=== PATIENT | male | born 1965 | race Caucasian/White ===

== ENCOUNTER 2021-10-23 16:58 | Emergency (ER) | payer MEDICAID, SELFPAY ==
[2021-10-23] VITALS (34 sets, daily range): BP systolic 130–178; BP diastolic 69–108; PULSE 76–94; RESP 12–24; TEMP 36.2–37.2; O2SAT 93–100
--- NOTE | 2021-10-23 17:26 | PC.NURSE ---
Patient reports drinking a 12 pack daily. Last intake was 1630 today.
--- NOTE | 2021-10-23 17:33 | ECG_ITS ---
Measurements Intervals [place] Rate: 94 P: 17 VA: 160 QRS: -25 QRSD: 102 T: 7 QT: 372 QTc: 466 Interpretive Statements SINUS RHYTHM SUPRAVENTRICULAR BIGEMINY DELAYED PRECORDIAL R/S TRANSITION BORDERLINE T WAVE ABNORMALITY- INFERIOR LEADS BASELINE ARTIFACT- I, II, III, AVR, AVL, AVF, V1-V6 ABNORMAL ECG Electronically Signed On 10-23-2021 20:01:51 TRIAGE LICENSED PRACTICAL NURSE by Jimmy Montez D.O.
--- NOTE | 2021-10-23 17:52 | ED.GENADULT ---
HPI - General Adult General Chief complaint: Unspecified <Aris Alfred APRN - Last Filed: 10/24/21 01:42> Stated complaint: shaky, cp <Aris Alfred APRN - Last Filed: 10/24/21 01:42> Time Seen by Provider: 10/23/21 17:36 <Aris Alfred APRN - Last Filed: 10/24/21 01:42> History of Present Illness HPI narrative: 56-year-old male presents to the emergency room with complaints of suicidal ideation. Patient states his suddenly last night and has been drinking more than usual. Patient states he did have a plan to use firearm, but was able to give the firearms to a family member prior to arrival in the emergency room. Patient admits to a long standing history of heavy alcohol use, the results and withdrawal immediately on cessation of alcohol use. Denies any admission to detox programs. No known psych issues. Positive family history for anxiety and depression. Reports no history of SI or HI. Patient states his last drink of alcohol was approximately 3 hours prior to arrival <Aris Alfred APRN - Last Filed: 10/24/21 01:42> Related Data Allergies/adverse reactions: Allergies Allergy/AdvReac Type Severity Reaction Status Date / Time diclofenac Allergy Unknown Verified 10/23/21 17:29 <Aris Alfred APRN - Last Filed: 10/24/21 01:42> Review of Systems Review of Systems: CONSTITUTIONAL: Denies fever, chills, or sweats. EYES: Denies visual changes, redness, or discharge. ENT: Denies rhinorrhea, congestion, sore throat, or otalgia. CARDIOVASCULAR: Denies chest pain, palpitations, or edema. RESPIRATORY: Denies cough or dyspnea. GASTROINTESTINAL: Reports generalized abdominal pain, nausea, and left CVA tenderness SKIN: Denies rash or itching. MUSCULOSKELETAL: Denies back pain, joint pain, or myalgia. NEUROLOGIC: Denies headache, numbness, dizziness, or weakness. PSYCHIATRIC: Denies anxiety or depression. <Aris Alfred APRN - Last Filed: 10/24/21 01:42> [facility] Social History Social History: Social History (Updated 10/23/21 @ 17:57 by Aris Alfred APRN) Alcohol intake: current Alcohol use details: 12+ drinks daily Substance use: current Substance use type: heroin, opiates and other Last use: 5 weeks ago <Aris Alfred APRN - Last Filed: 10/24/21 01:42> Course Course Emergency Course: Initial ethanol level was 110. Abnormal liver enzymes. Bag. Given 1 mg of Ativan. Patient appears calm. At 2200 repeat ethanol level was 30. Patient is not demonstrating any DTs or withdrawal symptoms at this time. patient has been medically cleared. At midnight crisis team at bedside to evaluate patient. <Aris Alfred APRN - Last Filed: 10/24/21 01:42> 10/24/21 0700 peritoneal myself at shift change seen evaluate myself agree with initial H&P patiently currently resting in bed he is requesting some Ativan at this time as he feels mildly agitated. Patient states he drinks approximately 8-10 beers a day Patient continued to wait for placement Covid swab for placement came back positive 1900 care will be turned over to Dr. Roper at shift change awaiting psychiatric placement <Neil Thomas DO - Last Filed: 10/24/21 18:52> DATE NIGHT CAREGIVER/PA Physician Supervision For this patient encounter, I reviewed the DATE NIGHT CAREGIVER or PA documentation, treatment plan, and medical decision making; and I had [id number] time with this patient. <Maverick Gilmore MD - Last Filed: 10/28/21 13:19> Reevaluation(s) Reevaluation #1: Patient is resting comfortably at this time. Crisis counselor evaluated the patient and patient will be admitted to inpatient psych under voluntary status. Crisis counselor was unable to obtain placement for the patient overnight. Crisis counselor will return on the morning to once again attempt seeking placement. <Maverick Gilmore MD - Last Filed: 10/28/21 13:19> Vital Signs Vital signs: Vital Signs Temperature 97.2 F L 0
[2021-10-23 18:06] LABS: Add Urine Microscopic? NO; Appearance Urine Clear (Clear); Basophils Absolute Auto 0.1 K/mm3 (0.0-0.1); Basophils Percent Auto 0.8 % (0.2-1.2); Bilirubin Urine Negative (Negative); Blood Urine Negative (Negative); Color Urine Straw (Yellow); Eosinophils Percent Auto 0.2 % (0-4.4); Glucose Urine UA Negative (Negative); Hematocrit 39.7 % (42.0-52.0); Hemoglobin 13.6 g/dL (14.0-18.0); Immature Granulocyte Absolute 0.03 K/mm3 (0.00-0.031); Immature Granulocyte Percent A 0.3 % (0-0.5); Immature Platelet Fraction Pct 19.7 % (0.9-11.2); Ketones Urine Negative (Negative); Leukocyte Esterase Ur Negative LEU/UL (Negative); Lymphocytes Absolute Auto 1.42 K/mm3 (0.9-3.2); Lymphocytes Percent Auto 13.2 % (18.3-44.2); Mean Corpuscular HGB Conc 34.3 g/dl (32-36); Mean Corpuscular Hemoglobin 32.1 pg (26-34); Mean Corpuscular Volume 93.6 fl (80-100); Mean Platelet Volume 12.1 fl (7.4-10.4); Monocytes Absolute Auto 1.2 K/mm3 (0.1-0.6); Monocytes Percent Auto 11.1 % (2.6-8.5); Neutrophils Percent Auto 74.4 % (45.5-73.1); Nitrate Urine Negative (Negative); Platelet Count Result 75 k/mm3 (150-375); Protein Urine Negative (Negative); Red Blood Count 4.24 M/mm3 (4.6-6.20); Red Cell Distribution Width 14.2 % (11.5-14.5); Urobilinogen Urine Negative mg/dL (<2.0); White Blood Count 10.7 K/mm3 (4.5-10.0)
[2021-10-23 18:10] LABS: Specific Grav Ur 1.001 (1.001-1.035)
[2021-10-23] MEDS: ONDANSETRON INJ 4 MG/2 ML VIAL IV PUSH (18:11)
[2021-10-23 18:16] LABS: INR 1.7; Prothrombin Time 19.2 Seconds (11.1-14.7)
[2021-10-23 18:18] LABS: Lipase 773 U/L (23-300)
[2021-10-23 18:20] LABS: Ethanol 102 mg/dL (<10)
[2021-10-23 18:22] LABS: Acetaminophen < 10 ug/mL (10-30); Salicylate < 1.0 mg/dL (2-20)
[2021-10-23 18:23] LABS: Alanine Aminotransferase 80 U/L (4-50); Albumin Level 4.5 g/dL (3.5-5.1); Alkaline Phosphatase 219 U/L (38-126); Anion Gap 14 mmol/L (8-16); Aspartate Amino Transferase 217 U/L (17-59); Bilirubin,Total 1.5 mg/dL (0.2-1.3); Blood Urea Nitrogen 6 mg/dL (9-20); Calcium 9.9 mg/dL (8.4-10.2); Carbon Dioxide 25 mmol/L (22-30); Chloride 97 mmol/L (98-107); Estimated CRCL calculation 145 ml/min; Estimated Glomerular Filt Rate > 60; Glucose 135 mg/dL (65-110); Sodium 136 mmol/L (137-145)
[2021-10-23 18:31] LABS: Troponin I < 0.012 ng/mL (0.000-0.034)
[2021-10-23] MEDS: THIAMINE HCL INJ 100 MG, FOLIC ACID INJ 1 MG, MULTIVITAMINS-12 INJ VIAL 1 5 ML, MULTIVI... IV CONT (18:44)
[2021-10-23] MEDS: LORazepam INJ (*CRX) 2 MG/ML VIAL 1 MG IV PUSH ×2 (18:44→22:11)
[2021-10-23 19:15] LABS: Amphetamine Screen Urine Negative (Negative); Barbiturate Screen Urine Negative (Negative); Benzodiazepines Screen Urine Negative (Negative); Cannabinoid Screen Urine Negative (Negative); Cocaine Screen Urine Negative (Negative); Methadone Screen Urine Positive (Negative); Opiate Screen Urine Negative (Negative); Phencyclidine Screen Urine Negative (Negative)
--- NOTE | 2021-10-23 19:15 | PC.NURSE ---
Report received from MONIE Burris. Pt asleep on stretcher, easily arousable. 1:1 sitter remains at bedside. Sister in room with patient, seems to calm him and be good support.
--- NOTE | 2021-10-23 20:07 | PC.NURSE ---
CIWA scale performed on patient. Pt reports last drank malt liquor at 1530 today. States feels better after ativan was given, and that I actually slept for a little bit . Made aware of pending testing. Given water po per his request. Denies other needs at present.
--- NOTE | 2021-10-23 20:40 | PC.NURSE ---
3 hr troponin being drawn as ordered. Pt given apple juice po.
[2021-10-23 21:05] LABS: Troponin I < 0.012 ng/mL (0.000-0.034)
--- NOTE | 2021-10-23 21:26 | PC.NURSE ---
Call to lab, asked to add on ETOH level to blood sent for 3 hr troponin.
[2021-10-23 21:36] LABS: Ethanol 37 mg/dL (<10)
--- NOTE | 2021-10-23 21:41 | PC.NURSE ---
Pt medically clear per EDP for eval by crisis. Also, as pt is low risk, OK to remove sitter from pt. ED MONIE Azevedo notified.
--- NOTE | 2021-10-23 21:48 | PC.NURSE ---
Celia from Crisis contacted and states that the pull worker is already out but pt will be added to her list.
--- NOTE | 2021-10-23 22:00 | PC.NURSE ---
Pt appears to be asleep, however is restless and occasional uncontrolled muscular movements and jerking. Sister remains at bedside states he is much calmer than on arrival and this is the best he's slept in a long time . Pt and sister updated on crisis evaluation and sister mentions she would like to speak with someone from crisis as well. Explained she is more than welcome to wait or that I could forward her number to crisis diagnostic imaging manager. Sister and pt both state would like to get into an alcohol program somewhere.
--- NOTE | 2021-10-23 23:44 | PC.NURSE ---
Continue to await Crisis arrival for evaluation. Pt given jello, crackers, and white soda per his request for something light. Reports hasn't eaten anything solid for a long time .
--- NOTE | 2021-10-23 23:47 | PC.NURSE ---
Pt ambulatory to bathroom. States is feeling stronger, denies dizziness, lightheadedness, chest pain, or shortness of breath with ambulation.
--- NOTE | 2021-10-23 23:59 | PC.NURSE ---
Ketty springer [place] at bedside with patient for evaluation.
[2021-10-24] VITALS (30 sets, daily range): BP systolic 125–170; BP diastolic 72–96; PULSE 69–92; RESP 12–24; TEMP 36.7–36.9; O2SAT 97–99
--- NOTE | 2021-10-24 01:20 | PC.NURSE ---
[facility]risis out of room, states is going to hospitalize the patient and that he is a voluntary admission at this time. Required paperwork provided.
--- NOTE | 2021-10-24 02:49 | PC.NURSE ---
Report to Milvia Sandoval RN, to continue care.
--- NOTE | 2021-10-24 02:56 | PC.NURSE ---
Report received from MONIE Peter. This RN assumed care of patient at this time.
[2021-10-24] MEDS: LORazepam INJ (*CRX) 2 MG/ML VIAL 1 MG IV PUSH ×2 (07:39→14:01)
[2021-10-24 08:01] LABS: Glucose Point of Care 147 mg/dl (65-105)
[2021-10-24 08:09] LABS: Lipase 506 U/L (23-300)
[2021-10-24 08:10] LABS: Basophils Absolute Auto 0.1 K/mm3 (0.0-0.1); Basophils Percent Auto 0.9 % (0.2-1.2); Eosinophils Absolute Auto 0.1 K/mm3 (0-0.3); Eosinophils Percent Auto 1.3 % (0-4.4); Hematocrit 41.2 % (42.0-52.0); Hemoglobin 13.6 g/dL (14.0-18.0); Immature Granulocyte Absolute 0.02 K/mm3 (0.00-0.031); Immature Granulocyte Percent A 0.2 % (0-0.5); Immature Platelet Fraction Pct 22.5 % (0.9-11.2); Lymphocytes Absolute Auto 1.92 K/mm3 (0.9-3.2); Lymphocytes Percent Auto 22.1 % (18.3-44.2); Mean Corpuscular Hemoglobin 31.9 pg (26-34); Mean Corpuscular Volume 96.5 fl (80-100); Mean Platelet Volume 12.9 fl (7.4-10.4); Monocytes Absolute Auto 0.9 K/mm3 (0.1-0.6); Monocytes Percent Auto 10.7 % (2.6-8.5); Neutrophils Absolute Auto 5.6 K/mm3 (1.3-6.7); Neutrophils Percent Auto 64.8 % (45.5-73.1); Platelet Count Result 65 k/mm3 (150-375); Red Blood Count 4.27 M/mm3 (4.6-6.20); Red Cell Distribution Width 14.6 % (11.5-14.5); White Blood Count 8.7 K/mm3 (4.5-10.0)
[2021-10-24] MEDS: SODIUM CHLORIDE 0.9% IV 1,000 ML 999 ML IV CONT (08:43)
[2021-10-24 09:53] LABS: SARS-CoV-2 RNA PCR Positive
--- NOTE | 2021-10-24 11:51 | PC.NURSE ---
patient positive for COVIDIvanna at [facility] aware. not able to place him d/t +COVID. place patient on hold and if patient denies SI, call [facility] and let him know. he will be on hold for 24 hours.
--- NOTE | 2021-10-24 13:25 | PC.NURSE ---
patient denies any SI at this time. slight anxious at this time. lunch ordered
--- NOTE | 2021-10-24 14:44 | PC.NURSE ---
patient's sister given update at this time
--- NOTE | 2021-10-24 22:20 | PC.NURSE ---
patient continues to deny SI.
[2021-10-25 02:55] VITALS: BP 170/9; PULSE 77; RESP 18; TEMP 37.2; O2SAT 99
--- NOTE | 2021-10-25 03:04 | PC.NURSE ---
SPoke to sister Shanna via telephone. She will pick patient up at about 4:30am. Will continue to monitor patient in room as per EDP request.
[2021-10-25 04:24] VITALS: BP 136/78; PULSE 87; RESP 17; O2SAT 97
== END 2021-10-25 04:17 | disposition home or self-care (01) ==
PROVIDERS: Emergency Medicine; Nurse Practitioner Family; Emergency Provider Emergency Medicine
DX: F10.10 Alcohol abuse, uncomplicated (principal); U07.1 COVID-19; Y90.5 Blood alcohol level of 100-119 mg/100 ml
CPT/HCPCS: 36415; 80053; 80307; 81003; 82948; 83690; 84443; 84484; 85025; 85055; 85610; 85730; 93005; 96365; 96366; 96375; 96376; 99284; C9803; J2060; J2405; J3411; J3475; J7030; U0003; U0005